=== PATIENT | female | born 1995 | race Caucasian/White ===

== ENCOUNTER → 2017-04-11 | Outpatient (CLI) | payer MEDICARE, OTHER ==
--- NOTE | 2017-04-11 15:16 | RAD ---
INDICATION: RIGHT WRIST/HAND INJURY, FALL LAST NIGHT COMPARISON: None. IMPRESSION: Right hand: 3 views obtained. No definite acute fracture or dislocation.
== END | disposition home or self-care (01) ==
LOC: DXRADRC 11:45
PROVIDERS: ATTEND General Practice
DX: S69.91XA Unspecified injury of right wrist, hand and finger(s), initial encounter (principal); W19.XXXA Unspecified fall, initial encounter; Y93.89 Activity, other specified; Y92.89 Other specified places as the place of occurrence of the external cause; Y99.8 Other external cause status
CPT/HCPCS: 73130